=== PATIENT | female | born 1990 | race African-American/Black ===

== ENCOUNTER 2016-12-30 23:41 | Emergency (ER) | payer OTHER ==
[2016-12-30 23:35] LABS: URINE SOURCE CLEAN CATCH
[2016-12-30 23:43] LABS: URINE APPEARANCE TURBID; URINE BILIRUBIN NEG (NEG); URINE BLOOD 3+ (NEG); URINE COLOR DK YELLOW; URINE GLUCOSE NEG (NEG); URINE KETONE NEG (NEG); URINE LEUKOCYTE ESTERASE 3+ (NEG); URINE NITRATE NEG (NEG); URINE PROTEIN 2+ (NEG); URINE SPECIFIC GRAVITY 1.023 (1.003-1.035)
[2016-12-30 23:51] LABS: CULTURE INDICATED? YES; URBCS1 AUWI 100-200 /[HPF] (0-2); URINE BACTERIA AUWI 4+ (NEGATIVE); URINE SQUAMOUS EPITHELIAL CELL OCC /[HPF]; UWBCS1 AUWI INNUM (0-5)
== END 2016-12-31 00:10 | disposition home or self-care (01) ==
LOC: CFTX 23:41
PROVIDERS: Physician Assistant
DX: N30.00 Acute cystitis without hematuria (principal); J45.909 Unspecified asthma, uncomplicated; F17.210 Nicotine dependence, cigarettes, uncomplicated
CPT/HCPCS: 81003; 84703; 87086; 87088; 87186; 99283